=== PATIENT | male | born 1970 | race Caucasian/White ===

== ENCOUNTER 2022-01-30 12:46 | Outpatient (CLI) | payer OTHER ==
--- NOTE | 2022-02-01 13:13 | MRI Report ---
PROCEDURE: LUMBAR SPINE WO INDICATIONS: LOW BACK PAIN TECHNIQUE: Noncontrast sagittal T1 spin echo and T2 fast echo, sagittal STIR, axial T1 and T2 fast spin echo thr ough the lumbar spine. In cases with scoliosis, additional coronal T2 fast spin echo may be performe d. COMPARISON: None. FINDINGS: Image quality: Excellent. Alignment and Curvature: There is normal bony alignment. Bone Marrow: Marrow is of normal overall signal. No acute vertebral body compression fractures. Spinal Cord: Conus medullaris terminates at the L1-L2 level. Visualized cord demonstrates normal si gnal and size. Paraspinous Soft Tissues: No paravertebral masses. T12-L1: No canal stenosis or foraminal stenosis. L1-L2: No canal stenosis or foraminal stenosis. L2-L3: No canal stenosis or foraminal stenosis. L3-L4: Disc bulge. Mild facet hypertrophy. No canal stenosis or foraminal stenosis. L4-L5: Posterior annulus tear plus disc bulge. Facet hypertrophy. Borderline canal stenosis. Mild kurt ateral foraminal stenosis. L5-S1: Mild facet hypertrophy. No canal stenosis or foraminal stenosis. IMPRESSION: 1. At L4-L5, there is annulus tear plus disc bulge. There is borderline canal stenosis. 2. Mild multilevel facet hypertrophy. Reviewed by: Nathaniel Gastelum MD on 02/01/2022 1:11 PM PST Approved by: Nathaniel Gastelum MD on 02/01/2022 1:11 PM PST Station ID: [id number]
== END 2022-01-30 12:47 | disposition home or self-care (01) ==
LOC: DI 12:46
PROVIDERS: ATTEND Family Medicine
DX: M47.816 Spondylosis without myelopathy or radiculopathy, lumbar region (principal); M48.061 Spinal stenosis, lumbar region without neurogenic claudication

== ENCOUNTER 2023-02-04 15:58 | Emergency (ER) | payer OTHER ==
--- NOTE | 2023-02-04 16:42 | ED Physician Documentation ---
PD HPI BACK PAIN - Stated complaint Stated Complaint: BACK PX - Chief complaint Chief Complaint: Back Pain - History obtained from History obtained from: Patient - History of Present Illness Timing - onset: How many days ago (5) Timing - duration: Days (5) Timing - details: Abrupt onset (has chronic low back pain with treatment of prior PT, ongoing muscle relaxants and gabapentin currently at 600 mg TID (increased from 300 mg TID a month or so ago). Bent over in shower 5 days ago and had abrupt worsening of the ongoing pain that has been at a higher intensity since that time.) Quality: Pain Associated symptoms: Weakness (he feels legs are not as strong as usual since pain increase.). No: Fever, Numbness, Incontinent of urine Improves with: No: Rest, Meds (seen at [facility] and Rx 5 days prednisone withou only minimal improvement. Talked with provider at [facility] and referred to ER.) Worsened by: Movement Contributing factors: Twisting (bending over in shower) Similar symptoms before: Diagnosis (prior low back pain with mild disc protrusion on MRI a year ago Jan 2022. Has seen back specialist in past with epidural/disc injection months ago, with some improvement.) Recently seen: Clinic (talked with provider at [facility] and referred to ER for possible acute imaging. The [facility] provider did call and talk with me ahead of pt arrival.) Review of Systems Constitutional: denies: Fever, Chills GI: denies: Abdominal Pain : denies: Incontinent Musculoskeletal: denies: Extremity swelling Neurologic: denies: Numbness PD PAST MEDICAL HISTORY - Past Medical History Past Medical History: Yes Cardiovascular: None Respiratory: None Neuro: None Endocrine/Autoimmune: None Psych: Depression, Post traumatic stress disorder Musculoskeletal: Chronic back pain - Past Surgical History Past Surgical History: Yes - Present Medications Home Medications: Ambulatory Orders Medication Instructions Recorded Confirmed dexAMETHasone [Decadron] 4 mg PO DAILY #5 tablet 02/04/23 oxyCODONE [Roxicodone] 5 mg PO Q6H PRN #20 tablet 02/04/23 - Allergies Allergies/Adverse Reactions: Allergies Allergy/AdvReac Type Severity Reaction Status Date / Time No Known Drug Allergies Allergy Verified 02/04/23 16:17 - Social History Does the pt smoke?: No Smoking Status: Never smoker PD ED PE NORMAL - Vitals Vital signs reviewed: Yes - General General: Alert and oriented X 3, Well developed/nourished, Other (appears in pain. Guardedly sitting in chair with minimal low back movement. ) - Derm Derm: Normal color, Warm and dry, No rash - Neuro Neuro: Alert and oriented X 3, No motor deficit (moves feet and ankles, knees with good strength. Pain with lifting thighs at hips. ), No sensory deficit, Normal speech, Other (normal knee reflexes) Results - Vitals Vitals: Vital Signs - 24 hr 02/04/23 02/04/23 16:13 19:13 Temperature 36.7 C 36.7 C Heart Rate 80 80 Respiratory 17 16 Rate Blood Pressure 135/76 H 128/72 O2 Saturation 97 98 - Rads (name of study) lumbar MRI Relevant Findings:: Prelim report reviewed (mild disc bulging L4-5 with some T2 attenuation. Remaining levels without disc bulge. No central canal stenosis. Cmparison with Jan 2022 shows no notable interval change. ) PD Medical Decision Making - ED course Complexity details: reviewed results (see report - no significan disc process. no disc bulge at most levels; mild at L4-5. No central canal stenosis. He was given disc of study to bring to [facility] in followup. ), re-evaluated patient (pain moderated with IM meds. Short term I feel it reasonable to Rx opioid pain meds for this acute exac of pain. He does not take any regularly. ), considered differential (he had noted some feeling of legs weakness without nubness. No radiating pain. Consider acute disc process and concern for central canal encroachment. Can order MRI lumbar. Given some pain meds prior with IM toradol and Dilaudid. ), d/w patient Departure - Departure Disposition: Home, Self Care Clinical Impression: Acute exacerbation of chronic low back pain Condition: Stable Record reviewed to determine appropriate education?: Yes Instructions: ED Low Back Pain Injury Follow-Up: RAQUEL PINK DO [Primary Care Provider] - Prescriptions: dexAMETHasone [Decadron] 4 mg PO DAILY #5 tablet oxyCODONE [Roxicodone] 5 mg PO Q6H PRN #20 tablet PRN Reason: Pain Comments: Your MRI showed minimal disc bulging with some inflammation at the L4-5 level. They commented its comparable to your MRI from January 2022. The other levels appear normal with no disc bulging. You can still have back pain without necessarily significant findings on MRI. T his could relate to some inflammation in the area as well as outside of the spine, muscle spasms or inflammation and misalignment. Physical therapy is appropriate. She can do heat stretching massage and chiropractic as well prior to the physical therapy being set up. I would continue with some anti-inflammatories. Initially the Decadron daily for several more days followed by the meloxicam prescribed by your primary care. Continue with the muscle relaxants that you have. Add Tylenol 500 to 650 mg 4 times daily regularly for the next 7 to 10 days. This is a low enough dose to not cause any problems related to liver or such. To that add oxycodone every 6 hours if needed for worse pain. I sent prescriptions to the [facility] in [place]. Follow-up with your primary care at the [facility]. I am prescribing a short course of narcotic pain medication for you. These are potentially dangerous and addictive medications that should be used carefully. These medications may constipate you. Take an [id number] stool softener such as docusate twice daily with plenty of water while taking these medications. If you go 24 hours without a bowel movement, take [id number] MiraLAX, per package instructions. Do not drink or drive while taking these medications. If you received narcotic or sedating medications while in the emergency department do not drive for 24 hours. Store this medication in a safe, secure place and out of reach of children. It is a violation of federal law to give or sell this medication to another person or to use in a manner other than prescribed. The ED will not refill narcotic prescriptions, including prescriptions lost or stolen. You can dispose of unwanted medications at the [facility]'s office or at several pharmacies such as [facility]. Discharge Date/Time: 02/04/23 19:13
[2023-02-04] MEDS: dexAMETHasone 4 MG TABLET PO STA (17:14)
[2023-02-04] MEDS: KETOROLAC 30 MG/ML VIAL IM STA (17:16)
[2023-02-04] MEDS: HYDROmorphone 1 MG/ML CARPUJECT IM STA (17:17)
--- NOTE | 2023-02-04 18:08 | MRI Report ---
PROCEDURE: LUMBAR SPINE WO INDICATIONS: acute increase low back pain TECHNIQUE: Noncontrast sagittal T1 spin echo and T2 fast echo, sagittal STIR, axial T1 and T2 fast spin echo thr ough the lumbar spine. In cases with scoliosis, additional coronal T2 fast spin echo may be performe d. COMPARISON: None. FINDINGS: Image quality: Excellent. Alignment and Curvature: There is normal bony alignment. Bone Marrow: Marrow is of normal overall signal. No acute vertebral body compression fractures. Spinal Cord: Conus medullaris terminates at the L1-2 level. Visualized cord demonstrates normal sig nal and size. Paraspinous Soft Tissues: No paravertebral masses. Discs: Mild desiccation is present L4-5. T12-L1: No disc bulge, spinal stenosis or foraminal narrowing. No interval change. L1-L2: No disc bulge, spinal stenosis or foraminal narrowing. Minimal epidural lipomatosis. No int erval change. L2-L3: No disc bulge, spinal stenosis or foraminal narrowing. Minimal epidural lipomatosis. No int erval change. L3-L4: Minimal disc bulge without spinal stenosis or foraminal narrowing. Minimal epidural lipomato sis. No interval change. L4-L5: Increased T2 signal within the distal most suggestive of annular fissure. Minimal disc bulge or spinal stenosis or foraminal narrowing. Minimal epidural lipomatosis. No interval change. L5-S1: No disc bulge, spinal stenosis or foraminal narrowing. No interval change. IMPRESSION: Stable interval exam compared to 01/30/2022 with early degenerative change. Reviewed by: Allyn Fernandez MD on 02/04/2023 6:07 PM PST Approved by: Allyn Fernandez MD on 02/04/2023 6:07 PM PST Station ID: [id number]
[2023-02-04 19:19] VITALS: BP 128/72; O2SAT 98
== END 2023-02-04 19:13 | disposition home or self-care (01) ==
LOC: ED 15:58
DX: M54.50 Low back pain, unspecified (principal); G89.29 Other chronic pain
CPT/HCPCS: 96372; 99284